=== PATIENT | female | born 1975 | race Caucasian/White ===

== ENCOUNTER 2016-12-19 19:37 | Outpatient (CLI) | payer BC ==
--- NOTE | 2016-12-19 20:36 | DIAGNOSTIC IMAGING REPORT ---
PROCEDURE: ABDOMEN/PELVIS WITH CONTRAST CLINICAL INDICATION: Right lower quadrant pain, nausea, diarrhea. TECHNIQUE: 115 ml of Isovue 300 were injected intravenously and axial images were obtained of the abdomen and pelvis with sagittal and coronal reformations. COMPARISON: None. FINDINGS: ABDOMEN: Clear lung bases. Normal sized heart. No hiatal hernia. The liver, gallbladder, adrenal glands, kidneys, pancreas and spleen are normal. Tiny left upper pole renal cortical cyst. The abdominal aorta is normal in its course and caliber. There are no suspicious calcifications, retroperitoneal adenopathy or masses. The stomach, upper bowel loops, and mesentery are normal. Intact anterior abdominal wall. PELVIS: The appendix was not seen. There is 3.9 cm cyst in the right adnexa with a small amount of adjacent fluid. There is a small amount of fluid dependently in the right pelvis. Pelvic small bowel loops are mildly hyperemic but nonenlarged. Scattered air-fluid levels are present. Semisolid stool in the colon. Air in the rectum. Surgically absent uterus. Decompressed urinary bladder. Normal osseous structures. IMPRESSION: 1. Probable right ovarian cyst rupture. 2. Nonvisualization of the appendix. With right adnexal/pelvic fluid, this is equivocal for appendicitis. 3. Mild reactive ileus and possibly enteritis. 4. Status post hysterectomy. 5. Findings discussed with Pratibha Hutchinson. All CT scans at this facility use dose modulation, iterative reconstruction, and/or weight-based dosing when appropriate to reduce radiation dose to as low as reasonably achievable.
== END 2016-12-19 23:00 | disposition home or self-care (01) ==
LOC: CT SRH 19:37
DX: R10.9 Unspecified abdominal pain (principal); Z90.89 Acquired absence of other organs